=== PATIENT | female | born 1980 | race Caucasian/White ===

== ENCOUNTER → 2017-01-08 | Outpatient (CLI) | payer OTHER ==
[~2017-01-08] MED LIST: CLON0.5T3 PO; ERGO500037 PO; FLUO20CA35 PO; FLUO40CA8 PO; FLX10 PO; NRT25 PO; OXYC1TAB3 PO; PROP10TA7 PO; RIZA10TA19 PO
[2017-01-08 18:25] LABS: ALT/SGPT 35 U/L (12-78); AST/SGOT 12 U/L (15-37); BLOOD UREA NITROGEN 16 mg/dl (7-18); BUN/CREATININE RATIO 22.8 (10-20); CALCIUM 9.1 mg/dl (8.5-10.1); CARBON DIOXIDE 27 mmol/L (21-32); CHLORIDE 107 mmol/L (98-107); CREATININE 0.71 mg/dl (0.60-1.20); GLUCOSE 106 mg/dl (70-99); POTASSIUM 3.6 mmol/L (3.5-5.1); SODIUM 142 mmol/L (136-145)
[2017-01-08 18:36] LABS: ALB/GLOB RATIO 1.3 (0.9-2); ALKALINE PHOSPHATASE 69 U/L (45-117)
== END | disposition home or self-care (01) ==
LOC: C.LABPBG 14:39
PROVIDERS: ATTEND Physician Assistant
DX: F41.9 Anxiety disorder, unspecified (principal); M79.7 Fibromyalgia; R53.83 Other fatigue

== ENCOUNTER 2017-03-21 14:12 | Emergency (ER) | payer OTHER ==
[~2017-03-21] VITALS: Ht 157.5 cm; Wt 75.8 kg
[~2017-03-21 14:12] MED LIST changes: -ERGO500037 PO; -FLUO40CA8 PO; -FLX10 PO; -OXYC1TAB3 PO; -PROP10TA7 PO; -RIZA10TA19 PO
[2017-03-21 14:16] VITALS: TEMP 36.7; Ht 157.5 cm; Wt 75.8 kg
[2017-03-21] MEDS ORDERED: KETOROLAC TROMETHAMINE 30 MG/ML VIAL IV STA (15:26)
[2017-03-21] MEDS ORDERED: FLUO40CA8 PO (15:31)
[2017-03-21] MEDS ORDERED: ERGO500037 PO (15:31)
[2017-03-21] MEDS ORDERED: CYCLOBENZAPRINE HCL 10 MG TAB PO STA (15:33)
--- NOTE | 2017-03-21 15:33 | EMERGENCY ROOM VISIT NOTE ---
History First contact with patient: 15:05 Chief Complaint: PAIN (GENERALIZED) Stated Complaint: FYBROMYALGIA PAIN/BACK SPASMS History of Present Illness The patient is a 36 year old female who presents to the Emergency Room with complaints of joint pain, back pain and leg pain that has been severe since yesterday. The patient has a history of fibromyalgia. She says this is typical for her fibromyalgia flares. She usually takes tramadol for the pain with her pain relief. She has been taking tramadol, Tylenol and ibuprofen with minimal relief. She also reports taking her temperature last night. It was elevated at 101.3F. She denies any other infectious symptoms such as sore throat, cough, headache, neck pain, nausea, vomiting, diarrhea, dysuria or flank pain. When asked why she took her temperature, she replies, "I felt hot. " She denies any new stressors in her life such as change in job or problems with family. No new medications. Her last menstrual period was 3 weeks ago and reportedly normal. Review of Systems 10 system review performed and negative unless noted in HPI or below Past Medical/Surgical History Surgical Problems: (1) H/O oophorectomy (2) H/O tubal ligation Family History Cholecystitis FHx: Crohn's disease Ulcerative colitis Social History Smoking Status: Current Every Day Smoker Alcohol Use: none Marital Status: single Housing Status: lives with significant other Occupation Status: unemployed Current/Historical Medications Scheduled Ergocalciferol (Vitamin D 37140 Unit), 50,000 INTER.UNIT PO WK Fluoxetine (Prozac), 40 MG PO DAILY Scheduled PRN Clonazepam (Klonopin), 0.5 MG PO DAILY PRN for Anxiety Cyclobenzaprine HCl (Cyclobenzaprine HCl), 10 MG PO TID PRN for Muscle Spasm Allergies Coded Allergies: Penicillins (Verified Allergy, Mild, RASH, 03/20/16) Cephalexin (Verified Allergy, Unknown, unknown, 03/20/16) Diphtheria Toxoid (Verified Allergy, Unknown, DTP, 03/20/16) Pertussis Toxoid (Verified Allergy, Unknown, DTP, 03/20/16) Tetanus Toxoid (Verified Allergy, Unknown, DTP, 03/20/16) Acetaminophen (Verified Adverse Reaction, Severe, NAUSEA, 03/20/16) Oxycodone (Verified Adverse Reaction, Severe, NAUSEA, 03/20/16) Physical Exam Vital Signs Date Time Temp Pulse Resp B/P (MAP) Pulse Ox O2 Delivery O2 Flow Rate FiO2 03/21/17 19:31 92 18 119/89 98 03/21/17 17:45 84 18 114/71 98 Room Air 03/21/17 15:47 80 16 122/72 97 Room Air 03/21/17 14:16 36.7 113 20 141/79 98 Room Air Physical Exam VITALS: Vitals are noted on the nurse's note and reviewed by myself. Vital signs stable. GENERAL: 36-year-old female, anxious in appearance,, well-developed well- nourished. SKIN: The skin was without rashes, erythema, edema, or bruising. HEAD: Normocephalic atraumatic. EARS: External auditory canals clear, tympanic membranes pearly reece without erythema or effusion bilaterally. EYES: Pupils dilated, but equal and reactive. Conjunctivae without injection, sclerae without icterus. Extraocular movements intact. MOUTH: Mucous membranes moist. Tonsils absent. Pharynx without erythema or exudate. Uvula midline. Airway patent. Tongue does not deviate. NECK: Mild submandibular lymphadenopathy noted. HEART: Regular rate and rhythm without murmurs gallops or rubs. LUNGS: Clear to auscultation bilaterally without wheezes, rales or rhonchi. No accessory muscle use. ABDOMEN: Positive bowel sounds x 4.Soft, nontender, without organomegaly. No guarding or rebound tenderness. MUSCULOSKELETAL: No muscle atrophy, erythema, or edema noted. Full range of motion in all extremities. No tenderness to palpation. Normal gait. Strength 5/5 throughout. No tenderness elicited over the spinous processes or paraspinous muscles bilaterally. No tenderness to palpation over the joints. Full range of motion. NEURO: Patient was alert and oriented to person place and time. Normal sensation to touch. No focal neurological deficits. Medical Decision & Procedures Laboratory Results 03/21/17 15:40 Red Blood Count 4.86, Mean Corpuscular Volume 90.9, Mean Corpuscular Hemoglobin 32.3, Mean Corpuscular Hemoglobin Concent 35.5, Mean Platelet Volume 9.8, Neutrophils (%) (Auto) 71.7, Lymphocytes (%) (Auto) 21.4, Monocytes (%) (Auto) 6.1, Eosinophils (%) (Auto) 0.6, Basophils (%) (Auto) 0.1, Neutrophils # (Auto) 5.83, Lymphocytes # (Auto) 1.74, Monocytes # (Auto) 0.50, Eosinophils # (Auto) 0.05, Basophils # (Auto) 0.01 03/21/17 15:40 Test 03/21/17 15:40 White Blood Count 8.14 K/uL (4.8-10.8) Red Blood Count 4.86 M/uL (4.2-5.4) Hemoglobin 15.7 g/dL (12.0-16.0) Hematocrit 44.2 % (37-47) Mean Corpuscular Volume 90.9 fL (80-100) Mean Corpuscular Hemoglobin 32.3 pg (25-34) Mean Corpuscular Hemoglobin Concent 35.5 g/dl (32-36) Platelet Count 238 K/uL (130-400) Mean Platelet Volume 9.8 fL (7.4-10.4) Neutrophils (%) (Auto) 71.7 % Lymphocytes (%) (Auto) 21.4 % Monocytes (%) (Auto) 6.1 % Eosinophils (%) (Auto) 0.6 % Basophils (%) (Auto) 0.1 % Neutrophils # (Auto) 5.83 K/uL (1.4-6.5) Lymphocytes # (Auto) 1.74 K/uL (1.2-3.4) Monocytes # (Auto) 0.50 K/uL (0.11-0.59) Eosinophils # (Auto) 0.05 K/uL (0-0.5) Basophils # (Auto) 0.01 K/uL (0-0.2) RDW Standard Deviation 41.6 fL (36.4-46.3) RDW Coefficient of Variation 12.5 % (11.5-14.5) Immature Granulocyte % (Auto) 0.1 % Immature Granulocyte # (Auto) 0.01 K/uL (0.00-0.02) Urine Color YELLOW Urine Appearance CLEAR (CLEAR) Urine pH 5.0 (4.5-7.5) Urine Specific [place] 1.018 (1.000-1.030) Urine Protein NEG (NEG) Urine Glucose (UA) NEG (NEG) Urine Ketones NEG (NEG) Urine Occult Blood TRACE (NEG) Urine Nitrite NEG (NEG) Urine Bilirubin NEG (NEG) Urine Urobilinogen NEG (NEG) Urine Leukocyte Esterase NEG (NEG) Urine WBC (Auto) 1-5 /hpf (0-5) Urine RBC (Auto) 0-4 /hpf (0-4) Urine Hyaline Casts (Auto) 1-5 /lpf (0-5) Urine Epithelial Cells (Auto) 5-10 /lpf (0-5) Urine Bacteria (Auto) NEG (NEG) Urine Test NEG (NEG) Anion Gap 7.0 mmol/L (3-11) Est Creatinine Clear Calc Drug Dose 84.1 ml/min Estimated GFR () 97.3 Estimated GFR (Non- 84.0 BUN/Creatinine Ratio 12.6 (10-20) Calcium Level 9.1 mg/dl (8.5-10.1) Medications Administered Medications (Trade) Dose Ordered Sig/Zeny Route Start Time Stop Time Status Last Admin Dose Admin Ketorolac Tromethamine (Toradol Inj) 30 mg NOW STAT IV 03/21/17 15:26 03/21/17 15:30 DC 03/21/17 15:49 30 MG Cyclobenzaprine HCl (Flexeril Tab) 10 mg NOW STAT PO 03/21/17 15:33 03/21/17 15:34 DC 03/21/17 15:49 10 MG Morphine Sulfate (MoRPHine SULFATE INJ) 4 mg ONE ONCE IV 03/21/17 17:15 03/21/17 17:16 DC 03/21/17 17:47 4 MG Lorazepam (Ativan Inj) 0.5 mg NOW STAT IV 03/21/17 18:38 03/21/17 18:39 DC 03/21/17 18:45 0.5 MG ED Course Patient was seen and examined Labs were obtained, and a saline lock was established Vital signs were reviewed She was given Toradol 30 mg IV for pain. She was also given Flexeril 10 mg po The patient was reassessed. She claims that her pain was no better. I informed the patient that if she could obtain a ride, I could give her a narcotic for pain. She agreed. The patient was given 1 dose of morphine 4 mg IV Upon reevaluation, she was still in pain. We discussed the findings of her workup. She verbalized agreement. She reports now that she feels very anxious and needs something to calm her down. She was given 1 dose of Ativan 0.5 mg IV. Upon reassessment, she was feeling better I reviewed discharge instructions the patient. They voiced understanding and had no further questions. Medical Decision Differential diagnosis: Fibromyalgia, depression, anxiety, infectious etiology, rheumatologic etiology, trauma This patient is a 36-year-old female that presented to the emergency department with complaints of back pain and particularly left leg pain in addition to joint pain. The patient says that this pain is chronic in nature. She was very anxious in appearance. I did question the patient about increased stressors in her life such as trouble at home or work. She could not think of any new stressors. I opted to draw blood given the fact that she claimed that she had a fever last night of 101.3. The patient had no other infectious symptoms such as cough, sore throat, severe headache, dysuria or GI symptoms. Her exam was benign. I could not elicit any pain. She was afebrile here. There is no leukocytosis. She was given multiple medications for pain with minimal improvement. She did however improve with Ativan. I believe likely that anxiety is playing a role in her fibromyalgia pain. The pain was eventually controlled. The patient was discharged home with her driving , and agrees to follow up with her primary care physician for further care. She was instructed to return with any new or worsening symptoms such as fever Impression Primary Impression: Fibromyalgia Departure Information Referrals Irma Soares DO (PCP) Patient Instructions My [facility]
[2017-03-21 16:00] LABS: BASO % 0.1 %; BASO ABS # 0.01 K/uL (0-0.2); COMPLETE YES; EOS % 0.6 %; HEMATOCRIT 44.2 % (37-47); IG% 0.1 %; LYMPH % 21.4 %; LYMPH ABS # 1.74 K/uL (1.2-3.4); MEAN CELL VOLUME 90.9 fL (80-100); MEAN CORPUSCULAR HEMOGLOBIN 32.3 pg (25-34); MEAN CORPUSCULAR HGB CONC 35.5 g/dl (32-36); MEAN PLATELET VOLUME 9.8 fL (7.4-10.4); MONO % 6.1 %; NEUT % 71.7 %; PLATELET COUNT 238 K/uL (130-400); RED BLOOD COUNT 4.86 M/uL (4.2-5.4); WHITE BLOOD COUNT 8.14 K/uL (4.8-10.8)
[2017-03-21 16:13] LABS: URINE APPEARANCE CLEAR (CLEAR); URINE BILIRUBIN NEG (NEG); URINE COLOR YELLOW; URINE NITRITE NEG (NEG); URINE SPECIFIC GRAVITY 1.018 (1.000-1.030); UROBILINOGEN NEG (NEG)
[2017-03-21 16:18] LABS: MANUAL MICROSCOPIC REQUIRED? NO; REVIEW REQ? NO
[2017-03-21 16:24] LABS: BUN/CREATININE RATIO 12.6 (10-20); CALCIUM 9.1 mg/dl (8.5-10.1); CREATININE 0.89 mg/dl (0.60-1.20); POTASSIUM 3.7 mmol/L (3.5-5.1)
[2017-03-21] MEDS ORDERED: MoRPHine SULFATE 4 MG/ML 1 ML CARP\\VIAL IV ONE (17:15)
[2017-03-21] MEDS ORDERED: LORAZEPAM 2 MG/ML 1 ML VIAL IV STA (18:38)
[2017-03-21 19:31] VITALS: BP 119/89; PULSE 92; O2SAT 98
[2017-03-21] MEDS ORDERED: FLX10 PO (21:22)
== END 2017-03-21 19:32 | disposition home or self-care (01) ==
LOC: C.EDB 14:14 → C.EDC 19:32
DX: M79.7 Fibromyalgia (principal); F17.200 Nicotine dependence, unspecified, uncomplicated; Z98.51 Tubal ligation status; Z90.721 Acquired absence of ovaries, unilateral; Z83.79 Family history of other diseases of the digestive system

== ENCOUNTER → 2017-03-30 | Outpatient (CLI) | payer OTHER ==
[~2017-03-30] MED LIST changes: +ERGO500037 PO; -FLUO20CA35 PO; +FLUO40CA8 PO; +FLX10 PO; +GADAVIST IV PRN; -NRT25 PO
--- NOTE | 2017-03-30 20:13 | DIAGNOSTIC IMAGING REPORT ---
BRAIN COMBO FOR MS HISTORY: Mental status change HAND PARESTHESIA, HEADACHE, WEAKNESS, NECK PAIN TECHNIQUE: Multiplanar multisequence MRI of the brain was performed both before and after the intravenous administration of contrast. COMPARISON STUDY: None FINDINGS: There are no areas of restricted diffusion to suggest acute infarction. The midline structures are intact. The paranasal sinuses are clear. The mastoid air cells are clear. The ventricles and sulci are within normal limits for age. There is no mass, hematoma, midline shift. The major vascular flow-voids at the skull base are well maintained. Postcontrast sequences show no areas of abnormal enhancement. Several small foci of increased signal are present in the cerebral hemispheres. Small focus is present within the left optic radiations posteriorly. An additional small focus is identified posterior left frontal lobe region. Several punctate foci of increased signal are identified over the cerebral convexity regions. No evidence for abnormal postcontrast enhancement. IMPRESSION: 1. Several small foci of increased signal within the periventricular and cerebral convexity regions. 2. These findings are nonspecific. Diagnostic considerations include early small vessel ischemic change, history of chronic headache, with the possibility of an early demyelinating disorder impossible to completely exclude 3. No evidence for abnormal postcontrast enhancement The above report was generated using voice recognition software. It may contain grammatical, syntax or spelling errors. Electronically signed by: Michel Bernardo M.D. 03/30/2017 8:11 PM Dictated Date/Time: 03/30/2017 8:07 PM
== END | disposition home or self-care (01) ==
LOC: C.MRI 17:11
PROVIDERS: ATTEND Physician Assistant
DX: M54.2 Cervicalgia (principal); R53.83 Other fatigue; R20.2 Paresthesia of skin; Z87.898 Personal history of other specified conditions; R51 Headache

== ENCOUNTER 2017-08-01 19:09 | Emergency (ER) | payer OTHER ==
[~2017-08-01] VITALS: Ht 157.5 cm; Wt 76.8 kg
[~2017-08-01 19:09] MED LIST changes: -GADAVIST IV PRN
[2017-08-01 19:24] VITALS: TEMP 36.9; Ht 157.5 cm; Wt 76.8 kg
[2017-08-01] MEDS ORDERED: FLUO20CA35 PO (19:47)
[2017-08-01] MEDS ORDERED: OXYC1TAB3 PO ×2 (19:48→23:29)
[2017-08-01] MEDS ORDERED: RIZA10TA19 PO (19:52)
[2017-08-01] MEDS ORDERED: PROP10TA7 PO (19:56)
[2017-08-01 20:36] LABS: BASO % 0.2 %; BASO ABS # 0.02 K/uL (0-0.2); COMPLETE YES; EOS % 1.1 %; HEMATOCRIT 40.3 % (37-47); IG% 0.1 %; LYMPH % 28.7 %; LYMPH ABS # 2.42 K/uL (1.2-3.4); MEAN CELL VOLUME 93.1 fL (80-100); MEAN CORPUSCULAR HEMOGLOBIN 32.6 pg (25-34); MEAN PLATELET VOLUME 10.1 fL (7.4-10.4); MONO % 8.4 %; NEUT % 61.5 %; PLATELET COUNT 214 K/uL (130-400); RED BLOOD COUNT 4.33 M/uL (4.2-5.4); WHITE BLOOD COUNT 8.44 K/uL (4.8-10.8)
[2017-08-01 20:36] LABS: URINE APPEARANCE CLEAR (CLEAR); URINE BILIRUBIN NEG (NEG); URINE COLOR YELLOW; URINE NITRITE NEG (NEG); URINE PH 6.5 (4.5-7.5); URINE SPECIFIC GRAVITY 1.022 (1.000-1.030); UROBILINOGEN NEG (NEG); ZZUR CULT IF INDIC CLEAN CATCH NO
[2017-08-01 20:44] LABS: MANUAL MICROSCOPIC REQUIRED? NO; REVIEW REQ? NO
[2017-08-01 20:58] LABS: BUN/CREATININE RATIO 21.8 (10-20); CALCIUM 9.6 mg/dl (8.5-10.1); CREATININE 0.81 mg/dl (0.60-1.20); POTASSIUM 3.7 mmol/L (3.5-5.1)
[2017-08-01 21:00] LABS: ALB/GLOB RATIO 1.2 (0.9-2)
--- NOTE | 2017-08-01 21:45 | DIAGNOSTIC IMAGING REPORT ---
PELVIC COMPLETE NON OB HISTORY: 37 years-old Female right pelvic pain, hx of dermoid cyst acute right-sided pelvic pain with history of ovarian dermoid. History of prior and left oophorectomy . COMPARISON: CT 03/20/2016 TECHNIQUE: Multiple real-time sonographic images of the deep pelvic structures were obtained transabdominally and transvaginally assessing grayscale appearance, color and spectral flow FINDINGS: TRANSABDOMINAL: Anteflexed uterus measures 7.5 x 3.9 x 4.8 cm and is unremarkable. No intramural mass lesions identified. Endometrium is homogeneous, 1.0 cm in thickness. Cystic structure of the right ovary is seen measuring 2.4 cm suggesting dominant follicle. Arterial inflow to the right ovary is documented. TRANSVAGINAL: Trace free fluid within the endocervical canal. Anteflexed uterus measures 8.4 x 4.1 x 5.4 cm and is unremarkable. Endometrium measures 1.4 cm trilaminar appearance. scar noted. The right ovary measures 3.8 x 2.2 x 3.3 cm with arterial inflow documented. Follicles of the right ovary noted with dominant right ovarian follicle, 2.5 cm. The previously noted calcifications and fat attenuation of the right ovary is not diagnostically visualized. Left ovary is surgically absent. There is no significant free pelvic fluid. IMPRESSION: 1. Prior left oophorectomy . 2. Unremarkable sonographic appearance of the uterus and endometrium. 3. Dominant follicle of the right ovary is seen, 2.5 cm. No evidence of ovarian torsion. 4. The previously noted lesion of the right ovary containing calcifications and macroscopic fat suggesting ovarian dermoid is not identified on today's study. The above report was generated using voice recognition software. It may contain grammatical, syntax or spelling errors. Electronically signed by: Ethan Huitron M.D. 08/01/2017 9:44 PM Dictated Date/Time: 08/01/2017 9:39 PM
[2017-08-01] MEDS ORDERED: OPTIRAY 320 IV PRN (22:00)
--- NOTE | 2017-08-01 23:15 | DIAGNOSTIC IMAGING REPORT ---
ABDOMEN AND PELVIS CT WITH IV CONTRAST CT DOSE: 768.15 mGycm HISTORY: Acute right lower quadrant abdominal pain with nausea RLQ pain, nausea TECHNIQUE: Multiaxial CT images of the abdomen and pelvis were performed following the use of intravenous contrast. A dose lowering technique was utilized adhering to the principles of ALARA. COMPARISON STUDY: CT 03/20/2016. FINDINGS: Mild dependent bibasilar atelectasis. No pneumoperitoneum or pneumatosis. Imaged inferior cardiac chambers are unremarkable. Liver, gallbladder, spleen, pancreas and adrenal glands are unremarkable. Cyst of the interpolar right kidney is noted, 10 mm. No renal calculi or hydronephrosis identified. Uterus and left adnexum are unremarkable. Dominant follicle right ovary is seen, 2.2 x 1.7 cm. Right ovarian dermoid containing macroscopic fat and calcification again seen involving the right adnexum, 3.1 x 3.0 x 2.8 cm. Aorta is normal in course and caliber. No bulky adenopathy. There is no bowel obstruction or focal bowel wall thickening. The appendix is appears normal. No evidence of acute appendicitis. Soft tissues are unremarkable. Mild diastases recti. Bones appear intact. IMPRESSION: 1. No acute intra-abdominal or intrapelvic abnormality identified. No evidence of acute appendicitis. 2. Right ovarian dermoid redemonstrated, 3.1 cm. Dominant follicle of the right ovary is also seen. 3. No bowel obstruction. Electronically signed by: Ethan Huitron M.D. 08/01/2017 11:14 PM Dictated Date/Time: 08/01/2017 11:09 PM
[2017-08-01] MEDS ORDERED: OXYCODONE IR HOME PACK PO ONE (23:30)
--- NOTE | 2017-08-01 23:30 | EMERGENCY ROOM VISIT NOTE ---
History First contact with patient: 19:26 Chief Complaint: ABDOMINAL PAIN Stated Complaint: PAIN PRESSURE FROM CYST ON R OVARY Nursing Triage Summary: Patient states she has a cyst on her right ovary for one year and has been having increasing pain, and frequency with urination. History of Present Illness The patient is a 37 year old female who presents to the Emergency Room with complaints of right pelvic pain. The patient states that she has had pain and pressure in her right lower abdomen for the past 3 days. She does state that she has a dermoid cyst on the right ovary which was found incidentally when she had a CT scan for trauma. She is seen by an TELEGRAPHIC INSTRUMENT SUPERVISOR in [place]. She had the left ovary removed for a cyst. She states she is scheduled to have surgery on the right ovary. She rates her overall discomfort an 8/10. She states that she has had an increased frequency in urination but denies any other urinary symptoms. She states this does not feel like previous UTIs she has had. She has associated nausea, but no vomiting. She denies fevers. She denies changes in bowel movements. She denies any history of abdominal surgeries. Review of Systems A complete 10 point review of systems was reviewed with the patient with pertinent positives and negatives as per history of present illness. All else were negative. Past Medical/Surgical History Surgical Problems: (1) H/O oophorectomy (2) H/O tubal ligation Family History Cholecystitis FHx: Crohn's disease Ulcerative colitis Social History Smoking Status: Current Every Day Smoker Alcohol Use: none Marital Status: single Housing Status: lives with significant other Occupation Status: unemployed Current/Historical Medications Scheduled Ergocalciferol (Vitamin D 14777 Unit), 50,000 INTER.UNIT PO WK Fluoxetine (Prozac), 40 MG PO DAILY Fluoxetine (Prozac), 20 MG PO DAILY Rizatriptan Benzoate ([employer] Artist), 10 MG PO UD Scheduled PRN Clonazepam (Klonopin), 0.5 MG PO DAILY PRN for Anxiety Oxycodone Ir (Roxicodone Ir), 2.5-5 MG PO Q6 PRN for Pain Oxycodone Ir (Roxicodone Ir), 1-2 TAB PO Q4H PRN for Pain Propranolol (Inderal), 1 TAB PO DAILY PRN for Headache Physical Exam Vital Signs Date Time Temp Pulse Resp B/P (MAP) Pulse Ox O2 Delivery O2 Flow Rate FiO2 08/01/17 23:52 72 18 109/60 96 Room Air 08/01/17 23:12 75 18 104/63 96 Room Air 08/01/17 21:22 77 18 118/67 97 Room Air 08/01/17 19:24 36.9 100 16 124/83 97 Room Air Physical Exam VITALS: Vitals are noted on the nurse's note and reviewed by myself. Vital signs stable. GENERAL: This is a 37-year-old female, in no acute distress, nondiaphoretic, well-developed well-nourished. NECK: Supple without nuchal rigidity. HEART: Regular rate and rhythm without murmurs gallops or rubs. LUNGS: Clear to auscultation bilaterally without wheezes, rales or rhonchi. ABDOMEN: Positive bowel sounds x 4. Soft, tenderness to palpation in the right lower quadrant of the abdomen without focal tenderness. No guarding or rebound tenderness. NEURO: Patient was alert and oriented to person place and time. Medical Decision & Procedures Laboratory Results 08/01/17 20:20 Red Blood Count 4.33, Mean Corpuscular Volume 93.1, Mean Corpuscular Hemoglobin 32.6, Mean Corpuscular Hemoglobin Concent 35.0, Mean Platelet Volume 10.1, Neutrophils (%) (Auto) 61.5, Lymphocytes (%) (Auto) 28.7, Monocytes (%) (Auto) 8.4, Eosinophils (%) (Auto) 1.1, Basophils (%) (Auto) 0.2, Neutrophils # (Auto) 5.19, Lymphocytes # (Auto) 2.42, Monocytes # (Auto) 0.71, Eosinophils # (Auto) 0.09, Basophils # (Auto) 0.02 08/01/17 20:20 Test 08/01/17 20:13 08/01/17 20:20 Urine Color YELLOW Urine Appearance CLEAR (CLEAR) Urine pH 6.5 (4.5-7.5) Urine Specific [place] 1.022 (1.000-1.030) Urine Protein NEG (NEG) Urine Glucose (UA) NEG (NEG) Urine Ketones NEG (NEG) Urine Occult Blood NEG (NEG) Urine Nitrite NEG (NEG) Urine Bilirubin NEG (NEG) Urine Urobilinogen NEG (NEG) Urine Leukocyte Esterase NEG (NEG) Urine Test NEG (NEG) White Blood Count 8.44 K/uL (4.8-10.8) Red Blood Count 4.33 M/uL (4.2-5.4) Hemoglobin 14.1 g/dL (12.0-16.0) Hematocrit 40.3 % (37-47) Mean Corpuscular Volume 93.1 fL (80-100) Mean Corpuscular Hemoglobin 32.6 pg (25-34) Mean Corpuscular Hemoglobin Concent 35.0 g/dl (32-36) Platelet Count 214 K/uL (130-400) Mean Platelet Volume 10.1 fL (7.4-10.4) Neutrophils (%) (Auto) 61.5 % Lymphocytes (%) (Auto) 28.7 % Monocytes (%) (Auto) 8.4 % Eosinophils (%) (Auto) 1.1 % Basophils (%) (Auto) 0.2 % Neutrophils # (Auto) 5.19 K/uL (1.4-6.5) Lymphocytes # (Auto) 2.42 K/uL (1.2-3.4) Monocytes # (Auto) 0.71 K/uL (0.11-0.59) Eosinophils # (Auto) 0.09 K/uL (0-0.5) Basophils # (Auto) 0.02 K/uL (0-0.2) RDW Standard Deviation 42.1 fL (36.4-46.3) RDW Coefficient of Variation 12.4 % (11.5-14.5) Immature Granulocyte % (Auto) 0.1 % Immature Granulocyte # (Auto) 0.01 K/uL (0.00-0.02) Anion Gap 7.0 mmol/L (3-11) Est Creatinine Clear Calc Drug Dose 92.1 ml/min Estimated GFR () 108.3 Estimated GFR (Non- 93.4 BUN/Creatinine Ratio 21.8 (10-20) Calcium Level 9.6 mg/dl (8.5-10.1) Total Bilirubin 0.3 mg/dl (0.2-1) Aspartate Amino Transf (AST/SGOT) 11 U/L (15-37) Alanine Aminotransferase (ALT/SGPT) 29 U/L (12-78) Alkaline Phosphatase 66 U/L (45-117) Total Protein 7.1 gm/dl (6.4-8.2) Albumin 3.8 gm/dl (3.4-5.0) Globulin 3.3 gm/dl (2.5-4.0) Albumin/Globulin Ratio 1.2 (0.9-2) Medications Administered Medications (Trade) Dose Ordered Sig/Zeny Route Start Time Stop Time Status Last Admin Dose Admin Oxycodone HCl (Roxicodone Immediate Rel 5MG Home Pack) 1 homepack UD ONCE PO 08/01/17 23:30 08/01/17 23:31 DC 08/01/17 23:52 1 HOMEPACK ED Course The patient was evaluated as above. Labs were drawn and IV access was obtained. Patient declined analgesics. Ultrasound of the pelvis was performed and read by radiology as above. Patient was reevaluated and was still having pain. CT was ordered. Patient was reevaluated and findings were discussed. She was given a home pack of Snow. Discharge instructions were reviewed with the patient. The patient verbalized understanding of my assessment and treatment plan and was discharged home in good condition. Medical Decision Differential diagnosis includes ovarian cyst, ovarian torsion, ectopic , urinary tract infection, kidney stone, appendicitis, among others. The patient is a 37-year-old female with known right ovarian dermoid cyst who presents today complaining of right lower quadrant abdominal pain. Labs revealed no leukocytosis, anemia or concerning electrolyte abnormalities. Urinalysis was not suggestive of infection. Pelvic ultrasound was initially performed and was unremarkable. The previously seen cyst was not shown on the ultrasound. There was no evidence of ovarian torsion. For this reason, CT was performed to rule out appendicitis. This did show the dermoid cyst of the right ovary and no other acute intra-abdominal findings. Patient was offered analgesics but declined, as she had driven herself here and is not able to take anti-inflammatories. She was given a home pack and very short course of Snow for her pain. She was advised to follow-up closely with TELEGRAPHIC INSTRUMENT SUPERVISOR. She was given instructions to return for worsening or new/concerning symptoms. Based on the patient's presentation and work up, I feel the patient is stable for outpatient treatment. The patient was educated to return to the emergency department for any worsening of their current condition or new/concerning symptoms. She will follow up with her TELEGRAPHIC INSTRUMENT SUPERVISOR. [place] Drug Monitoring Program Search Results: patient reviewed within database Medication Reconcilliation Current Medication List: was personally reviewed by me Blood Pressure Screening Patient's blood pressure: Normal blood pressure Impression Primary Impression: Right lower quadrant abdominal pain Additional Impression: Dermoid cyst of right ovary Departure Information Dispostion Home / Self-Care Condition GOOD Prescriptions Oxycodone Ir (Roxicodone Ir) 5 Mg Tab 1-2 TAB PO Q4H Y for Pain, #8 TAB For Initial Treatment Prov: Lana Warner PA-C 08/01/17 Referrals Irma Soares DO (PCP) Patient Instructions My [facility] Additional Instructions You have been treated in the Emergency Department your Abdominal Pain. Laboratory results and imaging studies have ruled out any emergent causes for your abdominal pain which would warrant admission or surgery. You have been prescribed OxyIR to be used for pain control. This is a narcotic medication. You cannot drive or consume alcohol while on this medicine. This medicine should only be used for pain that cannot be controlled with over-the- counter pain medicines. For pain control, you can use the following [id number] medicines (if >12 yo): - Regular strength (325mg/tab) Tylenol (acetaminophen) 2 tabs every 4-6 hours as needed. Do not exceed 12 tablets in a 24 hour period. Avoid taking more than 4 grams (4000 mg) of Tylenol per day. This includes any other sources of acetaminophen you may take on a regular basis. - Regular strength (200 mg/tab) Advil (ibuprofen) 1-2 tabs every 4-6 hours as needed. Do not exceed a dose of 3200 mg per day. Drink plenty of water and stay well hydrated. Call your TELEGRAPHIC INSTRUMENT SUPERVISOR scheduled follow-up. Return to the emergency department if your symptoms persist despite treatment plan outlined above or if the following symptoms occur: Worsening pain, vomiting , fevers or any new/concerning symptoms. Problem Qualifiers
[2017-08-01 23:52] VITALS: BP 109/60; PULSE 72; O2SAT 96
== END 2017-08-01 23:56 | disposition home or self-care (01) ==
LOC: C.EDB 19:11 → C.EDC 23:56
DX: R10.31 Right lower quadrant pain (principal); D27.0 Benign neoplasm of right ovary; F17.200 Nicotine dependence, unspecified, uncomplicated; Z87.440 Personal history of urinary (tract) infections; Z90.721 Acquired absence of ovaries, unilateral; Z98.51 Tubal ligation status; Z83.79 Family history of other diseases of the digestive system

== ENCOUNTER 2017-11-17 18:58 | Emergency (ER) | payer OTHER ==
[~2017-11-17] VITALS: Ht 157.5 cm; Wt 80.4 kg
[~2017-11-17 18:58] MED LIST changes: +FLUO20CA35 PO; -FLX10 PO; +OXYC1TAB3 PO; +PROP10TA7 PO; +RIZA10TA19 PO
[2017-11-17 19:03] VITALS: TEMP 36.8; Ht 157.5 cm; Wt 80.4 kg
[2017-11-17] MEDS ORDERED: PHENAZOPYRIDINE HCL 200 MG TAB PO STA (19:22)
--- NOTE | 2017-11-17 19:32 | EMERGENCY ROOM VISIT NOTE ---
History First contact with patient: 19:08 Chief Complaint: URINARY SYMPTOMS Stated Complaint: PAIN IN BLADDER/PELVIC AREA Nursing Triage Summary: Pt states, "I am having a lot of pain in my pelvic area and bladder. 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 I can't get into the urologist until December. I have pain midstream when I am emptying my bladder, but it's not the same as a bladder infection and I have frequency. I have pain in my lower back. I feel nauseated, but I don't know if it's from the pain." Sx for 6-8 mos. History of Present Illness The patient is a 37 year old female who presents to the Emergency Room with complaints of lower abdominal pain and pain with urination has been going on for several months. The patient also reports pain in her lower back. She denies any fever or chills. She has been nauseated without vomiting. She has had normal bowel movements. The patient was seen by her [employer] doctor for this pain. She was told that she had a dermoid cyst on her left ovary, which was removed. This did not help the pain. She denies any vaginal discharge. She has not had intercourse since the pain started. The patient then followed up with her primary care physician. She was diagnosed with interstitial cystitis. She is due to see a urologist in the next few months. Review of Systems 10 system review performed and negative unless noted in HPI or below Past Medical/Surgical History Surgical Problems: (1) H/O oophorectomy (2) H/O tubal ligation Fibromyalgia Family History Cholecystitis FHx: Crohn's disease Ulcerative colitis Social History Smoking Status: Current Every Day Smoker Alcohol Use: none Marital Status: single Housing Status: lives with significant other Occupation Status: unemployed Current/Historical Medications Scheduled Cholecalciferol (Vitamin D), 2,000 INTER.UNIT PO DAILY Fluoxetine (Prozac), 40 MG PO DAILY Fluoxetine (Prozac), 20 MG PO DAILY Scheduled PRN Clonazepam (Klonopin), 0.5 MG PO DAILY PRN for Anxiety Oxycodone Ir (Roxicodone Ir), 2.5-5 MG PO Q6 PRN for Pain Promethazine Hcl (Phenergan), 10 MG PO Q4H PRN for Nausea Physical Exam Vital Signs Date Time Temp Pulse Resp B/P (MAP) Pulse Ox O2 Delivery O2 Flow Rate FiO2 11/17/17 22:18 77 18 103/64 97 Room Air 11/17/17 19:03 36.8 110 20 128/75 99 Room Air Physical Exam VITALS: Vitals are noted on the nurse's note and reviewed by myself. Vital signs stable. GENERAL: 37-year-old female, in no acute distress, nondiaphoretic, well- developed well-nourished. SKIN: The skin was without rashes, erythema, edema, or bruising. HEAD: Normocephalic atraumatic. MOUTH: Mucous membranes moist. NECK: Supple without nuchal rigidity. No lymphadenopathy. Cervical spine is nontender. No JVD. HEART: Regular rate and rhythm without murmurs gallops or rubs. LUNGS: Clear to auscultation bilaterally without wheezes, rales or rhonchi. No accessory muscle use. ABDOMEN: Positive bowel sounds x 4.Soft, mild tenderness to palpation in the suprapubic region. No CVA tenderness noted., without organomegaly. No guarding or rebound tenderness. MUSCULOSKELETAL: No muscle atrophy, erythema, or edema noted. Strength 5/5 throughout. NEURO: Patient was alert and oriented to person place and time. Normal sensation to touch. No focal neurological deficits. Medical Decision & Procedures ER Provider Diagnostic Interpretation: pelvic US 1. Cystic region in the right adnexa may be separate from the right ovary and represent a peritoneal inclusion cyst status post removal of the right ovarian dermoid. 2. Normal right ovary. 3. Left nephrectomy. 4. Free fluid in the pelvis possibly physiologic. Electronically signed by: Edgar Waddell M.D. 11/17/2017 10:28 PM Dictated Date/Time: 11/17/2017 10:21 PM The status of this report is Signed. Draft = Not yet reviewed or approved by Radiologist. Signed = Reviewed and approved by Radiologist renal US IMPRESSION: 1. Normal renal ultrasound. No obstruction. Electronically signed by: Edgar Waddell M.D. 11/17/2017 9:58 PM Dictated Date/Time: 11/17/2017 9:56 PM The status of this report is Signed. Draft = Not yet reviewed or approved by Radiologist. Signed = Reviewed and approved by Radiologist. <AttendingPhy></AttendingPhy> <FamilyPhy>Irma Soares, DO</FamilyPhy> < PrimaryPhy>Irma Soares, DO</PrimaryPhy> <UnitNumber>[id number]</UnitNumber > <VisitNumber>[id number]</VisitNumber> <PatientName>SARAHY HERRERA</ PatientName> <DateOfBirth>1980</DateOfBirth> <Location>[facility]</Location> < ServiceDate>11/17/17</ServiceDate> <MNE>ESINDI</MNE> <OrderingPhy>Pilar Bernstein [place] SANTILLAN</OrderingPhy> <OrderingPhyMNE>f rep ord dr whaley</OrderingPhyMNE> < DictatingPhyMNE>f rep dict dr whaley</DictatingPhyMNE> <CCListMNE>f rep ct mne</ CCListMNE> <AdmittingPhyMNE>f pt admit dr whaley</AdmittingPhyMNE> <AttendingPhyMNE >f pt attend dr whaley</AttendingPhyMNE>. Laboratory Results 11/17/17 19:38 Red Blood Count 4.48, Mean Corpuscular Volume 90.6, Mean Corpuscular Hemoglobin 32.4, Mean Corpuscular Hemoglobin Concent 35.7, Mean Platelet Volume 9.4, Neutrophils (%) (Auto) 56.0, Lymphocytes (%) (Auto) 32.5, Monocytes (%) (Auto) 8.9, Eosinophils (%) (Auto) 2.1, Basophils (%) (Auto) 0.3, Neutrophils # (Auto) 3.54, Lymphocytes # (Auto) 2.05, Monocytes # (Auto) 0.56, Eosinophils # (Auto) 0.13, Basophils # (Auto) 0.02 11/17/17 19:38 Test 11/17/17 19:38 11/17/17 19:45 White Blood Count 6.31 K/uL (4.8-10.8) Red Blood Count 4.48 M/uL (4.2-5.4) Hemoglobin 14.5 g/dL (12.0-16.0) Hematocrit 40.6 % (37-47) Mean Corpuscular Volume 90.6 fL (80-100) Mean Corpuscular Hemoglobin 32.4 pg (25-34) Mean Corpuscular Hemoglobin Concent 35.7 g/dl (32-36) Platelet Count 219 K/uL (130-400) Mean Platelet Volume 9.4 fL (7.4-10.4) Neutrophils (%) (Auto) 56.0 % Lymphocytes (%) (Auto) 32.5 % Monocytes (%) (Auto) 8.9 % Eosinophils (%) (Auto) 2.1 % Basophils (%) (Auto) 0.3 % Neutrophils # (Auto) 3.54 K/uL (1.4-6.5) Lymphocytes # (Auto) 2.05 K/uL (1.2-3.4) Monocytes # (Auto) 0.56 K/uL (0.11-0.59) Eosinophils # (Auto) 0.13 K/uL (0-0.5) Basophils # (Auto) 0.02 K/uL (0-0.2) RDW Standard Deviation 41.9 fL (36.4-46.3) RDW Coefficient of Variation 12.6 % (11.5-14.5) Immature Granulocyte % (Auto) 0.2 % Immature Granulocyte # (Auto) 0.01 K/uL (0.00-0.02) Anion Gap 5.0 mmol/L (3-11) Est Creatinine Clear Calc Drug Dose 82.2 ml/min Estimated GFR () 91.6 Estimated GFR (Non- 79.1 BUN/Creatinine Ratio 16.4 (10-20) Calcium Level 8.7 mg/dl (8.5-10.1) Urine Color YELLOW Urine Appearance CLEAR (CLEAR) Urine pH 7.5 (4.5-7.5) Urine Specific Dewey 1.021 (1.000-1.030) Urine Protein NEG (NEG) Urine Glucose (UA) NEG (NEG) Urine Ketones NEG (NEG) Urine Occult Blood 2+ (NEG) Urine Nitrite NEG (NEG) Urine Bilirubin NEG (NEG) Urine Urobilinogen NEG (NEG) Urine Leukocyte Esterase NEG (NEG) Urine WBC (Auto) 1-5 /hpf (0-5) Urine RBC (Auto) 0-4 /hpf (0-4) Urine Hyaline Casts (Auto) 0 /lpf (0-5) Urine Epithelial Cells (Auto) 10-20 /lpf (0-5) Urine Bacteria (Auto) NEG (NEG) Urine Test NEG (NEG) Medications Administered Medications (Trade) Dose Ordered Sig/Zeny Route Start Time Stop Time Status Last Admin Dose Admin Phenazopyridine HCl (Pyridium Tab) 200 mg NOW STAT PO 11/17/17 19:22 11/17/17 19:24 DC 11/17/17 19:56 200 MG Morphine Sulfate (MoRPHine SULFATE INJ) 4 mg Q1H PRN IV 11/17/17 22:45 12/01/17 22:44 11/17/17 22:50 4 MG Phenazopyridine HCl (Phenazopyridine HCl 200MG Home Pack) 1 [facility] STK-MED ONCE PO 11/17/17 22:48 11/17/17 22:49 DC 11/17/17 22:51 1 [facility] ED Course Patient was seen and examined Vital signs including blood pressure were reviewed medications list was verified with patient Labs were obtained, and a saline lock was established The patient was medicated with Pyridium Imaging was performed and reviewed Upon reassessment, the patient was complaining of pain after the ultrasound. She was medicated with morphine 4 mg IV. We discussed her results. She voiced understanding. She was again reassessed and feeling better. The patient was comfortable being discharged home. She was given a home pack of Pyridium I reviewed discharge instructions the patient. They voiced understanding and had no further questions. Medical Decision Differential diagnosis: UTI, interstitial cystitis, kidney stone, pyelonephritis , ovarian cyst, STD, PID, ovarian torsion, ovarian mass, uterine fibroid, ectopic , appendicitis This patient is a 37-year-old female that presents to the emergency department with chronic lower abdominal pain/pressure and urinary frequency. On exam, she had some mild tenderness in the suprapubic region. There is no guarding or rebound tenderness. No CVA tenderness. She is nontoxic in appearance and afebrile. Labs reveal no leukocytosis. Renal function intact. An ultrasound shows a small cystic structure near the right ovary. Otherwise, it was unremarkable. She denied any vaginal discharge or fever. No recent sexual activity. I did not suspect an STD. There is a possibility of interstitial cystitis. The patient has follow-up with a urologist scheduled. She was encouraged to continue her pain medications as prescribed. She was also given a home pack of Pyridium. She was comfortable with this plan, and agrees to return to the emergency department with worsening symptoms This chart was completed in part utilizing [employer] Speech Voice Recognition software. Attempts were made to minimize the grammatical errors, random word insertions, pronoun errors and incomplete sentences. Any formal questions or concerns about the content, text or information contained within the body of this dictation should be directly addressed to the provider for clarification. Medication Reconcilliation Current Medication List: was personally reviewed by me Blood Pressure Screening Patient's blood pressure: Normal blood pressure Impression Primary Impression: Symptoms involving urinary system Departure Information Dispostion Home / Self-Care Condition GOOD Prescriptions Ketorolac Tromethamine (TORADOL) 10 Mg Tab 10 MG PO TID for p, #9 TAB Prov: Pilar Bernstein PA-C 11/17/17 Referrals Irma Soares DO (PCP) Patient Instructions My [facility] Additional Instructions You were evaluated in the emergency department for urinary symptoms and abdominal pain. There are no signs of infection. Please take Toradol 1 tab every 8 hours as needed for pain Please take Pyridium 1 tab every 8 hours as needed for urinary symptoms Continue other medications as prescribed Please follow-up with your primary care physician, your [employer] doctor and urology as soon as possible Please do not hesitate to return to the emergency department with any new, worsening or concerning symptoms It was a pleasure participating in your care
[2017-11-17 19:47] LABS: BASO % 0.3 %; BASO ABS # 0.02 K/uL (0-0.2); EOS % 2.1 %; EOS ABS # 0.13 K/uL (0-0.5); HEMATOCRIT 40.6 % (37-47); HEMOGLOBIN 14.5 g/dL (12.0-16.0); IG# 0.01 K/uL (0.00-0.02); LYMPH % 32.5 %; LYMPH ABS # 2.05 K/uL (1.2-3.4); MEAN CELL VOLUME 90.6 fL (80-100); MEAN CORPUSCULAR HEMOGLOBIN 32.4 pg (25-34); MEAN CORPUSCULAR HGB CONC 35.7 g/dl (32-36); MEAN PLATELET VOLUME 9.4 fL (7.4-10.4); MONO % 8.9 %; MONO ABS # 0.56 K/uL (0.11-0.59); NEUT ABS # 3.54 K/uL (1.4-6.5); PLATELET COUNT 219 K/uL (130-400); RED CELL DISTRIBUTION WIDTH CV 12.6 % (11.5-14.5); RED CELL DISTRIBUTION WIDTH SD 41.9 fL (36.4-46.3); WHITE BLOOD COUNT 6.31 K/uL (4.8-10.8)
[2017-11-17] MEDS ORDERED: CHOL100010 PO (19:54)
[2017-11-17] MEDS ORDERED: PROM25TA9 PO (19:55)
[2017-11-17 20:05] LABS: CALCIUM 8.7 mg/dl (8.5-10.1); CREATININE 0.93 mg/dl (0.60-1.20); POTASSIUM 3.5 mmol/L (3.5-5.1)
--- NOTE | 2017-11-17 21:59 | DIAGNOSTIC IMAGING REPORT ---
(RENAL)RETROPERITON COMP CLINICAL HISTORY: 37 years-old Female presenting with urinary frequency lower abd pain flank pain. TECHNIQUE: Real-time grayscale and limited color Doppler ultrasound imaging of the kidneys and bladder was performed. COMPARISON: CT from 08/01/2017. FINDINGS: Right kidney: Normal echogenicity of renal parenchyma. Right kidney measures 12.0 cm. No hydronephrosis. No convincing evidence of calculus or mass. Normal perfusion. Left kidney: Normal echogenicity of renal parenchyma. Left kidney measures 10.8 cm. No hydronephrosis. No convincing evidence of calculus or mass. Normal perfusion. Bladder: Under distended and incompletely evaluated. Bilateral ureteral jets not visualized. Other: None. IMPRESSION: 1. Normal renal ultrasound. No obstruction. Electronically signed by: Edgar Waddell M.D. 11/17/2017 9:58 PM Dictated Date/Time: 11/17/2017 9:56 PM
--- NOTE | 2017-11-17 22:29 | DIAGNOSTIC IMAGING REPORT ---
TRANSVAG-FEMALE PELVIS, PELVIC COMPLETE NON OB CLINICAL HISTORY: 37 years-old Female presenting with lower abd pain pressure, , no abnormal bleeding, last menstrual period 11/12/2017, history of tubal ligation, scar, left nephrectomy, and right ovarian dermoid removed in September. TECHNIQUE: Real-time grayscale and color and spectral Doppler ultrasound imaging of the pelvis was performed first using a transabdominal probe and subsequently transvaginal for better characterization. COMPARISON: 08/01/2017. FINDINGS: Uterus: Normal. Anteverted. The uterus measures 7.7 x 3.6 x 4.2 cm. Endometrial stripe measures 5 mm in thickness. Endometrium normal-appearing. Cervix contains nabothian cysts, which may contain hemorrhage or proteinaceous material. Right adnexa: Right ovary normal. Right ovary measures 1.8 x 2.9 x 1.9 cm. Normal color Doppler flow and arterial and venous waveforms within the ovarian parenchyma. Cystic region adjacent to the ovary measuring 2.3 x 1.1 x 1.6 cm. Left adnexa: Left ovary surgically absent. Other: Free fluid, possibly physiologic. IMPRESSION: 1. Cystic region in the right adnexa may be separate from the right ovary and represent a peritoneal inclusion cyst status post removal of the right ovarian dermoid. 2. Normal right ovary. 3. Left nephrectomy. 4. Free fluid in the pelvis possibly physiologic. Electronically signed by: Edgar Waddell M.D. 11/17/2017 10:28 PM Dictated Date/Time: 11/17/2017 10:21 PM
[2017-11-17] MEDS ORDERED: MoRPHine SULFATE 4 MG/ML 1 ML CARP\\VIAL IV PRN (22:45)
[2017-11-17] MEDS ORDERED: PHENAZOPYRIDINE HOME PACK 200 MG VIAL PO ONE ×2 (22:48→23:15)
[2017-11-17] MEDS ORDERED: KETO10TA PO (23:06)
[2017-11-17 23:18] VITALS: BP 106/78; PULSE 73; O2SAT 96
== END 2017-11-17 23:19 | disposition home or self-care (01) ==
LOC: C.EDB 18:59 → C.EDA 23:19
DX: R30.0 Dysuria (principal); M79.7 Fibromyalgia; Z98.51 Tubal ligation status; Z83.79 Family history of other diseases of the digestive system; F17.210 Nicotine dependence, cigarettes, uncomplicated; Z79.899 Other long term (current) drug therapy; Z90.721 Acquired absence of ovaries, unilateral

== ENCOUNTER → 2017-12-14 | Outpatient (CLI) | payer OTHER ==
[~2017-12-14] MED LIST changes: +CHOL100010 PO; -ERGO500037 PO; +PROM25TA9 PO; -PROP10TA7 PO; -RIZA10TA19 PO
== END | disposition home or self-care (01) ==
LOC: C.LABSPEC 14:57
PROVIDERS: ATTEND Urology
DX: R39.9 Unspecified symptoms and signs involving the genitourinary system (principal)

== ENCOUNTER → 2017-12-26 | Outpatient (CLI) | payer OTHER ==
[~2017-12-26] MED LIST changes: +CIPR1TAB11 PO; +CLBPO15 TOP; +PHEN-876 PO
--- NOTE | 2017-12-26 18:11 | DIAGNOSTIC IMAGING REPORT ---
CHEST 2 VIEWS ROUTINE HISTORY: 37 years-old Female R39.89 Bladder pain, WENT TO LAB FIRST, SEND TO [facility] preoperative exam. No acute chest complaints COMPARISON: None available TECHNIQUE: PA and lateral views of the chest FINDINGS: Cardiomediastinal and hilar silhouettes are within normal limits. There is no pneumothorax, pleural effusion, focal airspace consolidation or overt pulmonary edema. The bones of the chest appear grossly intact. IMPRESSION: No acute process. The above report was generated using voice recognition software. It may contain grammatical, syntax or spelling errors. Electronically signed by: Ethan Huitron M.D. 12/26/2017 6:10 PM Dictated Date/Time: 12/26/2017 6:08 PM
[2017-12-26 18:33] LABS: BASO % 0.4 %; BASO ABS # 0.03 K/uL (0-0.2); EOS % 1.6 %; EOS ABS # 0.12 K/uL (0-0.5); HEMATOCRIT 44.1 % (37-47); HEMOGLOBIN 15.7 g/dL (12.0-16.0); IG# 0.02 K/uL (0.00-0.02); LYMPH % 27.7 %; LYMPH ABS # 2.11 K/uL (1.2-3.4); MEAN CELL VOLUME 91.1 fL (80-100); MEAN CORPUSCULAR HEMOGLOBIN 32.4 pg (25-34); MEAN CORPUSCULAR HGB CONC 35.6 g/dl (32-36); MEAN PLATELET VOLUME 9.5 fL (7.4-10.4); MONO ABS # 0.53 K/uL (0.11-0.59); PLATELET COUNT 262 K/uL (130-400); RED CELL DISTRIBUTION WIDTH CV 12.7 % (11.5-14.5); RED CELL DISTRIBUTION WIDTH SD 42.5 fL (36.4-46.3); WHITE BLOOD COUNT 7.61 K/uL (4.8-10.8)
[2017-12-26 19:00] LABS: BLOOD UREA NITROGEN 15 mg/dl (7-18); CALCIUM 9.1 mg/dl (8.5-10.1); CARBON DIOXIDE 30 mmol/L (21-32); CREATININE 0.85 mg/dl (0.60-1.20); GLUCOSE 83 mg/dl (70-99); POTASSIUM 3.9 mmol/L (3.5-5.1); SODIUM 138 mmol/L (136-145)
== END | disposition home or self-care (01) ==
LOC: C.LAB 17:45
PROVIDERS: ATTEND Urology
DX: R39.89 Other symptoms and signs involving the genitourinary system (principal)

== ENCOUNTER → 2018-01-07 | Day surgery (SDC) | payer OTHER ==
[2018-01-02 10:46] VITALS: BMI 31.0
[~2018-01-07] VITALS: Ht 157.5 cm; Wt 78.6 kg
[~2018-01-07] MED LIST changes: +ATROPINE SULFATE 0.1 MG/ML 5ML SYR IV PRN; +CIPR-255 PO; -CLON0.5T3 PO; +DEXAMETHASONE SOD INJ 4 MG/ML VIAL ONE; +DiphenhydrAMINE HCL 50 MG/ML VIAL ONE; +EpHEDrine SULFATE INJ 50 MG/ML AMP IV PRN; +FENTANYL CITRATE INJ 50 MCG/1 ML 2 ML VIAL IV PRN; +FENTANYL CITRATE INJ 50 MCG/1 ML 2 ML VIAL ONE; -FLUO20CA35 PO; +KETOROLAC TROMETHAMINE 30 MG/ML VIAL ONE; +LACTATED RINGER'S 1000ML 1,000 ML IV SCH; +LIDOCAINE 2% JELLY 5 ML TUBE EXT ONE; +LIDOCAINE HCL 2% 2 ML VIAL (20MG/ML) ONE; +MIDAZOLAM HCL 1 MG/ML 2ML VIAL ONE; +ONDANSETRON INJ 2 MG/ML 2 ML VIAL IV PRN; +ONDANSETRON INJ 2 MG/ML 2 ML VIAL ONE; +PHEN95TA14 PO; +PHENAZOPYRIDINE HCL 200 MG TAB PO STA; +PROPOFOL IV EMULSION 10 MG/ML 20 ML VIAL IV ONE; +SODIUM CHLORIDE 0.9% 1000ML 1,000 ML IV SCH; +TRAMADOL HCL 50 MG TAB PO PRN
[2018-01-07 09:50] VITALS: Ht 157.5 cm; Wt 78.6 kg
--- NOTE | 2018-01-07 11:44 | History & Physical Bridge Note ---
H&P Re-Evaluation Bridge Note: I have examined the patient, reviewed the History & Physical and in the interval since the performance of the History & Physical I have noted the following changes of clinical significance: No changes noted
[2018-01-07] MEDS: CIPROFLOXACIN / D5W 400 MG IV SCH ×2 (12:04→12:10)
--- NOTE | 2018-01-07 12:40 | [facility] Operative Report ---
Operative Report Operative Date Jan 07, 2018. Pre-Operative Diagnosis Chronic bladder pain; Hunner's ulcers Post-Operative Diagnosis chronic bladder pain; healthy appearing bladder mucosa Procedure(s) Performed cystoscopy; hydrodistention; instillation of lidocaine Surgeon Guy Brewer Estimated Blood Loss 0cc Drains None Anesthesia Type General Complication(s) none Disposition yes Recovery Room / PACU Indications Bladder pain; numerous ulcerations on cysto in the office Description of Procedure Patient identified in the preoperative holding area, appropriate informed consents reviewed and completed and the patient was transported to the operating suite. Upon arrival she received appropriate preoperative antibiotics in the form of ciprofloxacin. Adequate general anesthesia was achieved she was placed in dorsal lithotomy position where she was sterilely prepped and draped in standard fashion. I began the case by passing a 27 Angolan resectoscope with 30 lens and visual tuber operator. Full inspection was carried out of the bladder utilizing both a 30 and 70 lenses. Interestingly, the previously seen ulcerations across the bladder had completely resolved. There were no ulcers, no tumors, no significant glomerulations scattered around the bladder. In the preop holding area, she reported that she was feeling much better than she had been previously, and I suspect that the findings are indicative of this. Given her long duration of bladder discomfort, I performed a hydrodistention, filling her bladder to maximum capacity and holding it there for 2 minutes before emptying. Rescoping her after the hydrodistention, she did not develop any further glomerulations or active ulcers or bleeding. I then injected viscous lidocaine into her bladder as a topical anesthetic. I subsequently concluded the case. She was extubated and taken to the PACU in stable condition. I attest to the content of the Intraoperative Record and any orders documented therein. Any exceptions are noted below.
--- NOTE | 2018-01-07 12:47 | Discharge Instructions ---
Discharge Instructions Date of Service Jan 07, 2018. Admission Reason for Admission: Bladder Pain Discharge Discharge Diagnosis / Problem: bladder pain Discharge Goals Goal(s): Decrease discomfort, Improve function, Increase independence, Improve disease control Activity Recommendations Activity Limitations: resume your previous activity Lifting Limitations: none Exercise/Sports Limitations: none May Resume Sexual Activity: when tolerated Shower/Bathe: no limitations Driving or Machine Use: resume 1 day after discharge . Instructions / Follow-Up Instructions / Follow-Up Please keep your previously scheduled follow up appointment with Current Hospital Diet Patient's current hospital diet: Discharge Diet Recommended Diet: Regular Diet Procedures Procedures Performed: cystoscopy; hydrodistention; instillation of lidocaine Pending Studies Studies pending at discharge: no Medical Emergencies . Who to Call and When: Medical Emergencies: If at any time you feel your situation is an emergency, please call 911 immediately. . Non-Emergent Contact Non-Emergency issues call your: Urologist Call Non-Emergent contact if: you have a fever, temperature is above 101.5, your pain is not controlled, your pain is worsening . . "Provider Documentation" section prepared by Carlos Young. .
[2018-01-07 13:40] VITALS: BP 101/62; PULSE 70; TEMP 36.8; O2SAT 96
--- NOTE | 2018-01-07 13:42 | Anesthesiology Progress Note ---
Anesthesia Post Op Note Date & Time Jan 07, 2018 at 13:42 Vital Signs Pain Intensity: 0 Vital Signs Past 12 Hours Date Time Temp Pulse Resp B/P (MAP) Pulse Ox O2 Delivery O2 Flow Rate FiO2 01/07/18 13:30 37 65 16 99/63 95 Room Air 01/07/18 13:20 62 16 96/55 95 Room Air 01/07/18 13:10 73 16 105/62 100 Oxymask 10 01/07/18 13:00 36.4 63 16 100/69 100 Oxymask 10 01/07/18 12:53 36.4 63 16 105/68 100 Oxymask 10 Notes Mental Status: alert / awake / arousable, participated in evaluation Pt Amnestic to Procedure: Yes Nausea / Vomiting: adequately controlled Pain: adequately controlled Airway Patency, RR, SpO2: stable & adequate BP & HR: stable & adequate Hydration State: stable & adequate Anesthetic Complications: no major complications apparent
[2018-01-07 14:10] VITALS: BP 101/58; PULSE 80; TEMP 36.9; O2SAT 97
== END | disposition home or self-care (01) ==
LOC: C.ACU 09:15
PROVIDERS: ATTEND Urology
DX: R39.89 Other symptoms and signs involving the genitourinary system (principal); M79.7 Fibromyalgia; F17.200 Nicotine dependence, unspecified, uncomplicated; K64.8 Other hemorrhoids; K57.90 Diverticulosis of intestine, part unspecified, without perforation or abscess without bleeding; E55.9 Vitamin D deficiency, unspecified; Z88.0 Allergy status to penicillin; Z90.721 Acquired absence of ovaries, unilateral; Z82.5 Family history of asthma and other chronic lower respiratory diseases; Z83.3 Family history of diabetes mellitus; Z82.49 Family history of ischemic heart disease and other diseases of the circulatory system; Z83.6 Family history of other diseases of the respiratory system

== ENCOUNTER → 2018-05-02 | Outpatient (CLI) | payer OTHER ==
[~2018-05-02] MED LIST changes: -ATROPINE SULFATE 0.1 MG/ML 5ML SYR IV PRN; -CIPR1TAB11 PO; -DEXAMETHASONE SOD INJ 4 MG/ML VIAL ONE; -DiphenhydrAMINE HCL 50 MG/ML VIAL ONE; -EpHEDrine SULFATE INJ 50 MG/ML AMP IV PRN; -FENTANYL CITRATE INJ 50 MCG/1 ML 2 ML VIAL IV PRN; -FENTANYL CITRATE INJ 50 MCG/1 ML 2 ML VIAL ONE; -KETOROLAC TROMETHAMINE 30 MG/ML VIAL ONE; -LACTATED RINGER'S 1000ML 1,000 ML IV SCH; -LIDOCAINE 2% JELLY 5 ML TUBE EXT ONE; -LIDOCAINE HCL 2% 2 ML VIAL (20MG/ML) ONE; -MIDAZOLAM HCL 1 MG/ML 2ML VIAL ONE; -ONDANSETRON INJ 2 MG/ML 2 ML VIAL IV PRN; -ONDANSETRON INJ 2 MG/ML 2 ML VIAL ONE; +OXYC-90 PO; -OXYC1TAB3 PO; -PHENAZOPYRIDINE HCL 200 MG TAB PO STA; -PROPOFOL IV EMULSION 10 MG/ML 20 ML VIAL IV ONE; -SODIUM CHLORIDE 0.9% 1000ML 1,000 ML IV SCH; -TRAMADOL HCL 50 MG TAB PO PRN
--- NOTE | 2018-05-02 17:45 | DIAGNOSTIC IMAGING REPORT ---
CERVICAL SPINE RADIOGRAPHS, INCLUDING FLEXION AND EXTENSION CLINICAL HISTORY: Neck pain. COMPARISON STUDY: MRI of the cervical spine March 01, 2016. FINDINGS: Reversal of the normal cervical lordosis is noted on the neutral view. There is no evidence for instability during flexion or extension. No fracture or suspicious lesion is noted. There is mild disc space narrowing and osteophytosis at C5-C6 and C6-C7. IMPRESSION: 1. No cervical spine fracture. 2. Mild disc space narrowing and osteophytosis at C5-C6 and C6-C7. 3. Reversal of the normal cervical lordosis. No evidence for instability during flexion or extension. Electronically signed by: Master Lock M.D. 05/02/2018 5:43 PM Dictated Date/Time: 05/02/2018 5:29 PM
--- NOTE | 2018-05-02 17:46 | DIAGNOSTIC IMAGING REPORT ---
L HIP UNILATERAL 2 VIEWS CLINICAL HISTORY: Left hip pain. No known trauma. COMPARISON: CT of the abdomen and pelvis August 01, 2017. FINDINGS: Alignment of the left hip is anatomic. There is no fracture or suspicious lesion. There is no evidence for avascular necrosis. Joint spaces preserved. Mild osteoarthritis of the left sacroiliac joint is noted. IMPRESSION: 1. Unremarkable radiographs of the left hip. 2. Mild osteoarthritis of the left sacroiliac joint. Electronically signed by: Master Lock M.D. 05/02/2018 5:45 PM Dictated Date/Time: 05/02/2018 5:44 PM
--- NOTE | 2018-05-02 17:46 | DIAGNOSTIC IMAGING REPORT ---
RIGHT HIP 2 VIEWS CLINICAL HISTORY: Right hip pain. FINDINGS: AP and frog-leg views of the right hip are correlated with pelvic CT dated 03/20/2016. The skeletal structures are well mineralized. There is no fracture identified involving the right hip or the visualized right hemipelvis. The joint space of the hip is preserved. Mild sclerotic change is noted in the right sacroiliac joint. The overlying soft tissues are normal in appearance. Small phleboliths are observed in the pelvis. IMPRESSION: 1. Unremarkable radiographic assessment of the right hip. 2. Sclerotic degenerative change is noted in the right sacroiliac joint. Electronically signed by: Nicolas Hollis M.D. 05/02/2018 5:45 PM Dictated Date/Time: 05/02/2018 5:44 PM
--- NOTE | 2018-05-02 17:47 | DIAGNOSTIC IMAGING REPORT ---
THORACIC SPINE 3 VIEWS ROUTINE CLINICAL HISTORY: Mid back pain. No known trauma. COMPARISON STUDY: No previous studies for comparison. FINDINGS: There is slight rightward curvature of the thoracic spine. Alignment is otherwise anatomic. Vertebral body heights are maintained. There is no fracture or suspicious lesion. Mild multilevel disc space narrowing and osteophytosis is noted. IMPRESSION: 1. No thoracic spine fracture. 2. Mild multilevel degenerative disc disease within the thoracic spine. 3. Minimal rightward curvature of the thoracic spine. Electronically signed by: Msater Lock M.D. 05/02/2018 5:46 PM Dictated Date/Time: 05/02/2018 5:45 PM
== END | disposition home or self-care (01) ==
LOC: C.RAD 16:46
PROVIDERS: ATTEND Nurse Practitioner Family
DX: M54.2 Cervicalgia (principal); M25.551 Pain in right hip; M25.552 Pain in left hip; M54.6 Pain in thoracic spine; M43.8X2 Other specified deforming dorsopathies, cervical region; M53.3 Sacrococcygeal disorders, not elsewhere classified